=== PATIENT | female | born 1965 | race Two or more races ===

== ENCOUNTER 2024-04-27 13:00 | Outpatient (AMB) | payer MEDICAID, SELFPAY ==
[2024-04-27 13:11] VITALS: BP 127/78; PULSE 86; RESP 18; TEMP 36.7; O2SAT 97; BMI 43.0
--- NOTE | 2024-04-27 13:11 | PD.ORTHCLVIS ---
Vital signs 04/27/24 13:11 Height 1.65 m Height Method Stated Weight 117.14 kg Weight Measurement Method Standing Scale BMI 43.0 BP 127/78 Blood Pressure Source Automatic Cuff Blood Pressure Location Right Upper Arm Position Sitting Respiration 18 Pulse 86 Pulse Source Monitor Temp 98.0 F Temp Source Temporal Artery Scan Pulse Oximetry (%) 97 Oxygen Delivery Method Room Air Med/Allergies Allergies & Medications Allergies No Known Allergies Allergy (Verified 04/27/24 13:12) Subjective Visit Visit for: follow up visit and knee (RIGHT) Immunization / Flu Flu Vaccine in the Last 12 Months: No Flu Vaccine Exclusion Criteria: Refused by Patient History of Present Illness Chief complaint: F/U REQ RIGHT KNEE INJECTION Date of 1st surgery (if applicable): 5 YEARS AGO Chela is a pleasant 58-year-old female presents today for evaluation of her right knee. She has had cortisone injections every 3 months. They are no longer working. She reports that she is in a lot of pain. She had knee arthroscopy 4 years ago and she reports that this has not helped tremendously. 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 Exam Exam Patient is in no acute distress and is cooperative with the examination today. Breathing is nonlabored. Patient has a normal mood and affect. Bilateral extremities were evaluated and demonstrates sensation intact to light touch. Palpable pedal pulses are present. No significant edema is present. Bilateral hips were examined. The patient has no pain with log roll of the hips. Internal rotation to 30 degrees and external rotation to 30 degrees is painless. Negative FADIR. Left knee was examined today. The left knee is in reasonable alignment. Range of motion from 0-120 degrees. Knee is stable to varus and valgus as well as AP translation with <5mm. Patient has a negative McMurrays. There is no pain with patellofemoral compression and no crepitus noted. The knee is nontender to palpation. The right knee was also examined. The right knee is in [varus] alignment. Range of motion from [0-115] degrees. Knee is stable to varus and valgus as well as AP translation with <5mm. Patient has a [negative] McMurrays. There is [no] pain with patellofemoral compression and [no] crepitus noted. The knee is [tender] to palpation [medially]. xrays demonstrate severe right knee osteoarthritis and joint space narrowing Assessment and Plan Problem List (1) Arthritis of knee, right: Status: Acute Plan: Patient is a 58-year-old female with right knee osteoarthritis of likely significant severity. She is morbidly obese currently. We recommend weight loss. She is failed conservative treatment. I would like to see her weightbearing x-rays. We can discuss different surgical treatment but I would likely recommend weight loss at this time and possibly a cortisone injection. She will need authorization for injection at the next visit X-rays demonstrate significant right knee osteoarthritis. We discussed weight loss. Her goal weight is 240 pounds. Recommend knee cortisone injection as patient would like to proceed with conservative treatment at this time. The risks and benefits of the procedure were reviewed with the patient and patient gave verbal consent to continue with the procedure. Procedure: performed by Dr. Dominguez Using sterile technique the Right knee was thoroughly prepped with alcohol, and approximately 1 cc of Kenalog 40 mg/mL and 4 cc of 1% lidocaine was injected without resistance into the medial tibial femoral joint space. The patient tolerated the procedure. Office Procedures GNS Level of Care Nursing/Assessment Patient Status: Established Patient Nursing Assessment/Reassesment: Medication Reconciliation, Update PMH in EMR and Vital Signs Coordination of Care: Complex Care and Chronic Disease 1-5, Education Complex Pt/Fam, Consent,records obtained, informed consent, 1 Ins Authorization, Results/Orders obtained and Staff clarify orders Established Patient Charge Established Patient Point Assignment: 110 Established Patient Point Charge: EP Level 3 (80-115) Surgical Proc/IM SQ injection Major Surgical Procedure: Yes (RIGHT KNEE INJECTION) Medication Given Medication Given Medication Given: Yes Documented Dose Given: 4 Route: Infiitration Medication Given Medication Given Medication Given: Yes Documented Dose Given: 1 Route: Infiitration Office Meds Xylocaine 10 mg/mL (1 %) injection solution Performing Provider: Gregory Dominguez MD Performing Location: [facility] Administered by: Gregory Dominguez MD on 04/27/24 13:19 Dose Route Admin Location Dispensed Lot Number Expiration Date [facility] Railway Signal Operator 20 mL Infiltration 20 mL [id number] 02/24/27 27104-613-82 [facility] triamcinolone acetonide 40 mg/mL suspension for injection Performing Provider: Gregory Dominguez MD Performing Location: [facility] Administered by: Gregory Dominguez MD on 04/27/24 13:19 Dose Route Admin Location Dispensed Lot Number Expiration Date [facility] Railway Signal Operator 40 mg Infiltration 1 mL [id number] 01/24/26 [address]-7 [employer] Past Medical History Past Medical History Have you ever been diagnosed with any of the following: Respiratory Problems Smoking: No Smoking Exposure: No
== END 2024-04-27 13:48 | disposition home or self-care (01) ==
LOC: HODSRG 13:00
PROVIDERS: Supervising Provider Orthopaedic Surgery Adult Reconstructive Orthopaedic Surgery; Visit Provider Orthopaedic Surgery Adult Reconstructive Orthopaedic Surgery
DX: M17.11 Unilateral primary osteoarthritis, right knee (principal); E66.01 Morbid (severe) obesity due to excess calories; Z68.41 Body mass index [BMI] 40.0-44.9, adult
CPT/HCPCS: 20610; 99213; J3301; J3490; G0463

== ENCOUNTER 2024-10-24 07:51 | Outpatient (AMB) | payer MEDICAID, SELFPAY ==
[2024-10-24 08:03] VITALS: BP 120/84; PULSE 70; RESP 18; TEMP 36.2; O2SAT 98; BMI 40.8
--- NOTE | 2024-10-24 08:03 | PD.ORTHCLVIS ---
Vital signs 10/24/24 08:03 Height 1.65 m Height Method Stated Weight 111.272 kg Weight Measurement Method Standing Scale BMI 40.8 BP 120/84 Blood Pressure Source Automatic Cuff Blood Pressure Location Left Upper Arm Position Sitting Respiration 18 Pulse 70 Pulse Source Monitor Temp 97.1 F Temp Source Temporal Artery Scan Pulse Oximetry (%) 98 Oxygen Delivery Method Room Air Med/Allergies Allergies & Medications Allergies No Known Allergies Allergy (Verified 10/24/24 08:05) Medication Reconciliation No Known Home Medications 10/24/24 [History Confirmed 10/24/24] Exam Exam Patient is in no acute distress and is cooperative with the examination today. Breathing is nonlabored. Patient has a normal mood and affect. Bilateral extremities were evaluated and demonstrates sensation intact to light touch. Palpable pedal pulses are present. No significant edema is present. Bilateral hips were examined. The patient has no pain with log roll of the hips. Internal rotation to 30 degrees and external rotation to 30 degrees is painless. Negative FADIR. Left knee was examined today. The left knee is in reasonable alignment. Range of motion from 0-120 degrees. Knee is stable to varus and valgus as well as AP translation with <5mm. Patient has a negative McMurrays. There is no pain with patellofemoral compression and no crepitus noted. The knee is nontender to palpation. The right knee was also examined. The right knee is in [varus] alignment. Range of motion from [0-115] degrees. Knee is stable to varus and valgus as well as AP translation with <5mm. Patient has a [negative] McMurrays. There is [no] pain with patellofemoral compression and [no] crepitus noted. The knee is [tender] to palpation [medially]. xrays demonstrate severe right knee osteoarthritis and joint space narrowing Assessment and Plan Problem List (1) Arthritis of knee, right: Status: Acute Plan: Patient is a 58-year-old female with right knee osteoarthritis of likely significant severity. She is morbidly obese currently. We recommend weight loss. She is failed conservative treatment. I would like to see her weightbearing x-rays. We can discuss different surgical treatment but I would likely recommend weight loss at this time and possibly a cortisone injection. She will need authorization for injection at the next visit X-rays demonstrate significant right knee osteoarthritis. We discussed weight loss. Her goal weight is 240 pounds. Recommend knee cortisone injection as patient would like to proceed with conservative treatment at this time. The risks and benefits of the procedure were reviewed with the patient and patient gave verbal consent to continue with the procedure. Procedure: performed by Dr. Dominguez Using sterile technique the Right knee was thoroughly prepped with alcohol, and approximately 1 cc of Kenalog 40 mg/mL and 4 cc of 1% lidocaine was injected without resistance into the medial tibial femoral joint space. The patient tolerated the procedure. Office Procedures GNS Level of Care Nursing/Assessment Patient Status: Established Patient Nursing Assessment/Reassesment: Medication Reconciliation, Update PMH in EMR and Vital Signs Coordination of Care: Complex Care and Chronic Disease 1-5, Education Complex Pt/Fam, Consent,records obtained, informed consent, Results/Orders obtained and Staff clarify orders Established Patient Charge Established Patient Point Assignment: 95 Established Patient Point Charge: EP Level 3 (80-115) Surgical Proc/IM SQ injection Major Surgical Procedure: Yes (RIGHT KNEE INJECTION) Medication Given Medication Given Medication Given: Yes Documented Dose Given: 4 Route: Infiitration Medication Given Medication Given Medication Given: Yes Documented Dose Given: 1 Route: Infiitration Office Meds Xylocaine 10 mg/mL (1 %) injection solution Performing Provider: Gregory Dominguez MD Performing Location: [facility] Administered by: Gregory Dominguez MD on 10/24/24 08:20 Dose Route Admin Location Dispensed Lot Number Expiration Date [facility] [employer] Equipment Operator 20 mL Infiltration 20 mL [id number] 12/26/27 67665-154-01 [facility] triamcinolone acetonide 40 mg/mL suspension for injection Performing Provider: Gregory Dominguez MD Performing Location: [facility] Administered by: Gregory Dominguez MD on 10/24/24 08:20 Dose Route Admin Location Dispensed Lot Number Expiration Date [facility] [employer] Equipment Operator 40 mg intra-articular KNEE 1 mL [id number] 04/26/26 7954-6030-05 [employer] [place] Intake Visit Data Collection New Patient or Established: Established Patient (seen at [facility] within 3 years) Reason for Visit:: FOLLOW UP RIGHT KNEE INJECTION Seen by Clinical Staff ONLY (RN/MA): No PCP or OBGYN visit in last 3 months: Yes Hx Now: No Do You Feel Safe at Home: Yes Authorities Contacted: N/A Questionairres Past Medical History Past Medical History Have you ever been diagnosed with any of the following: Respiratory Problems Smoking: Yes (STARTED ) Smoking Exposure: Yes Subjective Visit Visit for: follow up visit, knee and injections Immunization / Flu Flu Vaccine in the Last 12 Months: No Flu Vaccine Exclusion Criteria: Refused by Patient History of Present Illness Chief complaint: right knee pain Patient is a pleasant 59-year-old female with right knee pain. She has [id number] arthritis. She is lost 12 pounds since we last saw her. She would like a new injection today. Personal History Red flag PMH: smoker Pain Pain level (0-10): 8 Pain duration: ALL DAY Pain location: inside (medial) and anterior Pain quality: sharp, dull and aching Pain timing: night, increases with activity and stairs Associated signs & symptoms: weakness Ambulatory data Ambulatory device: none Treatments Number of previous injections: 2 Improvement with previous injections: Yes Improvement with PT: No Improvement with NSAIDS: no Review of Systems Review of Systems: All systems negative unless otherwise noted in HPI.
== END 2024-10-24 08:16 | disposition home or self-care (01) ==
LOC: HODSRG 07:51
PROVIDERS: Supervising Provider Orthopaedic Surgery Adult Reconstructive Orthopaedic Surgery; Visit Provider Orthopaedic Surgery Adult Reconstructive Orthopaedic Surgery
DX: M17.11 Unilateral primary osteoarthritis, right knee (principal); E66.01 Morbid (severe) obesity due to excess calories; Z68.41 Body mass index [BMI] 40.0-44.9, adult
CPT/HCPCS: 20610; 99213; J3301; J3490; G0463

== ENCOUNTER 2025-02-22 08:10 | Outpatient (AMB) | payer MEDICAID, SELFPAY ==
[2025-02-22 08:19] VITALS: BP 123/76; PULSE 62; RESP 19; TEMP 36.4; O2SAT 100; BMI 40.8
--- NOTE | 2025-02-22 08:19 | ORTHONT_ITS ---
Vital signs 02/22/25 08:19 Height 1.65 m Height Method Stated Weight 111.215 kg Weight Measurement Method Standing Scale BMI 40.8 BP 123/76 Blood Pressure Source Automatic Cuff Blood Pressure Location Left Upper Arm Position Sitting Respiration 19 Pulse 62 Pulse Source Monitor Temp 97.6 F Temp Source Temporal Artery Scan Pulse Oximetry (%) 100 Oxygen Delivery Method Room Air Med/Allergies Allergies & Medications Allergies No Known Allergies Allergy (Verified 02/22/25 08:20) Medication Reconciliation No Known Home Medications 10/24/24 [History Confirmed 02/22/25] Exam Exam Patient is in no acute distress and is cooperative with the examination today. Breathing is nonlabored. Patient has a normal mood and affect. Bilateral extremities were evaluated and demonstrates sensation intact to light touch. Palpable pedal pulses are present. No significant edema is present. Bilateral hips were examined. The patient has no pain with log roll of the hips. Internal rotation to 30 degrees and external rotation to 30 degrees is painless. Negative FADIR. Left knee was examined today. The left knee is in reasonable alignment. Range of motion from 0-120 degrees. Knee is stable to varus and valgus as well as AP translation with <5mm. Patient has a negative McMurrays. There is no pain with patellofemoral compression and no crepitus noted. The knee is nontender to palpation. The right knee was also examined. The right knee is in [varus] alignment. Range of motion from [0-115] degrees. Knee is stable to varus and valgus as well as AP translation with <5mm. Patient has a [negative] McMurrays. There is [no] pain with patellofemoral compression and [no] crepitus noted. The knee is [tender] to palpation [medially]. xrays demonstrate severe right knee osteoarthritis and joint space narrowing Assessment and Plan Problem List (1) Arthritis of knee, right: Status: Acute Plan: Patient is a 58-year-old female with right knee osteoarthritis of likely signifi cant severity. She is morbidly obese currently. We recommend weight loss. She is failed conservative treatment. I would like to see her weightbearing x- rays. We can discuss different surgical treatment but I would likely recommend weight loss at this time and possibly a cortisone injection. She will need authorization for injection at the next visit X-rays demonstrate significant right knee osteoarthritis. We discussed weight loss. Her goal weight is 240 pounds. Recommend knee cortisone injection as patient would like to proceed with conservative treatment at this time. The risks and benefits of the procedure were reviewed with the patient and patient gave verbal consent to continue with the procedure. Procedure: performed by Dr. Dominguez Using sterile technique the Right knee was thoroughly prepped with alcohol, and approximately 1 cc of Depo-Medrol 80mg/mL and 4 cc of 0.2% ropivacaine was injected without resistance into the medial tibial femoral joint space. The patient tolerated the procedure. Office Procedures GNS Level of Care Nursing/Assessment Patient Status: Established Patient Nursing Assessment/Reassesment: Medication Reconciliation, Update PMH in EMR and Vital Signs Coordination of Care: Complex Care and Chronic Disease 1-5, Education Complex Pt/Fam, Consent,records obtained, informed consent, Results/Orders obtained and Staff clarify orders Established Patient Charge Established Patient Point Assignment: 95 Established Patient Point Charge: EP Level 3 (80-115) Surgical Proc/IM SQ injection Major Surgical Procedure: Yes (RIGHT KNEE INJECTION) Medication Given Medication Given Medication Given: Yes Documented Dose Given: 1 Route: Infiitration Medication Given Medication Given Medication Given: Yes Documented Dose Given: 4 Route: Infiitration Office Meds methylprednisolone acetate 80 mg/mL suspension for injection Performing Provider: Gregory Dominguez MD Performing Location: [facility] Administered by: Gregory Dominguez MD on 02/22/25 08:25 Dose Route Admin Location Dispensed Lot Number Expiration Date [facility] Infrastructure Director 80 mg intra-articular 1 mL [id number] 11/24/26 [address]-6 [facility] ropivacaine (PF) 2 mg/mL (0.2 %) injection solution Performing Provider: Gregory Dominguez MD Performing Location: [facility] Administered by: Gregory Dominguez MD on 02/22/25 08:25 Dose Route Admin Location Dispensed Lot Number Expiration Date [facility] Infrastructure Director 20 mL Infiltration 20 mL [id number] 07/27/27 40332-276-25 [facility] Intake Visit Data Collection New Patient or Established: Established Patient (seen at [facility] within 3 years) Reason for Visit:: 3MTH RIGHT KNEE INJECTION Seen by Clinical Staff ONLY (RN/MA): No PCP or OBGYN visit in last 3 months: Yes Hx Now: No Do You Feel Safe at Home: Yes Authorities Contacted: N/A Questionairres Past Medical History Past Medical History Have you ever been diagnosed with any of the following: Respiratory Problems Smoking: Yes (STARTED ) Smoking Exposure: Yes Subjective Visit Visit for: follow up visit, knee and injections Immunization / Flu Flu Vaccine in the Last 12 Months: No Flu Vaccine Exclusion Criteria: Refused by Patient History of Present Illness Chief complaint: right knee pain Patient is a pleasant 59-year-old female with right knee pain. She has [id number] arthritis. She is lost 12 pounds since we last saw her. She would like a new injection today. Personal History Red flag PMH: smoker Pain Pain level (0-10): 8 Pain duration: ALL DAY Pain location: inside (medial) and anterior Pain quality: sharp, dull and aching Pain timing: night, increases with activity and stairs Associated signs & symptoms: weakness Ambulatory data Ambulatory device: none Treatments Number of previous injections: 2 Improvement with previous injections: Yes Improvement with PT: No Improvement with NSAIDS: no Review of Systems Review of Systems: All systems negative unless otherwise noted in HPI.
== END 2025-02-22 08:24 | disposition home or self-care (01) ==
PROVIDERS: PCP Family Medicine; Referring Provider Family Medicine; Supervising Provider Orthopaedic Surgery Adult Reconstructive Orthopaedic Surgery; Visit Provider Orthopaedic Surgery Adult Reconstructive Orthopaedic Surgery
DX: M17.11 Unilateral primary osteoarthritis, right knee (principal); M25.561 Pain in right knee; E66.01 Morbid (severe) obesity due to excess calories; Z68.41 Body mass index [BMI] 40.0-44.9, adult
CPT/HCPCS: 20610; 99213; J1010; J2795; G0463

== ENCOUNTER 2025-06-14 13:21 | Outpatient (AMB) | payer MEDICAID, SELFPAY ==
[2025-06-14 13:54] VITALS: BP 127/78; PULSE 72; RESP 18; TEMP 36.4; O2SAT 98; BMI 41.1
--- NOTE | 2025-06-14 13:54 | ORTHONT_ITS ---
Vital signs 06/14/25 13:54 06/14/25 14:16 Height 1.65 m Height Method Stated Weight 111.782 kg Weight Measurement Method Standing Scale BMI 41.1 BP 127/78 127/78 Blood Pressure Source Automatic Cuff Blood Pressure Location Left Upper Arm Position Sitting Respiration 18 18 Pulse 72 72 Pulse Source Monitor Temp 97.6 F 97.6 F Temp Source Temporal Artery Scan Pulse Oximetry (%) 98 98 Oxygen Delivery Method Room Air Med/Allergies Allergies & Medications Allergies No Known Allergies Allergy (Verified 06/14/25 13:55) Medication Reconciliation No Known Home Medications 10/24/24 [History Confirmed 06/14/25] Assessment and Plan Problem List (1) Arthritis of knee, right: Status: Acute Office Procedures GNS Level of Care Nursing/Assessment Patient Status: Established Patient Nursing Assessment/Reassesment: Medication Reconciliation, Update PMH in EMR and Vital Signs Coordination of Care: Complex Care and Chronic Disease 1-5, Education Complex Pt/Fam, Consent,records obtained, informed consent, Results/Orders obtained and Staff clarify orders Established Patient Charge Established Patient Point Assignment: 95 Established Patient Point Charge: EP Level 3 (80-115) Surgical Proc/IM SQ injection Minor Surgical Procedure: Yes (KNEE INJECTION) Medication Given Medication Given Medication Given: Yes Documented Dose Given: 1 Route: Infiitration Medication Given Medication Given Medication Given: Yes Documented Dose Given: 4 Route: Infiitration Office Meds methylprednisolone acetate 80 mg/mL suspension for injection Performing Provider: Gregory Dominguez MD Performing Location: [facility] Administered by: Gregory Dominguez MD on 06/14/25 15:11 Dose Route Admin Location Dispensed Lot Number Expiration Date Pack age [facility] [employer] Machine Operator 80 mg intra-articular 1 mL [id number] 02/24/27 [address]-0 [id number] [employer] ropivacaine (PF) 2 mg/mL (0.2 %) injection solution Performing Provider: Gregory Dominguez MD Performing Location: [facility] Administered by: Gregory Dominguez MD on 06/14/25 15:11 Dose Route Admin Location Dispensed Lot Number Expiration Date Pack age [facility] W[employer] Machine Operator 20 mL Infiltration 20 mL [id number] 11/24/26 7862-1821-33 [id number] [id number] [facility] Intake Visit Data Collection New Patient or Established: Established Patient (seen at [facility] within 3 years) Reason for Visit:: 3MTH RIGHT KNEE INJECTION Seen by Clinical Staff ONLY (RN/MA): No PCP or OBGYN visit in last 3 months: Yes Hx Now: No Do You Feel Safe at Home: Yes Authorities Contacted: N/A Questionairres Past Medical History Past Medical History Have you ever been diagnosed with any of the following: Respiratory Problems Smoking: Yes (STARTED ) Smoking Exposure: Yes Subjective Visit Visit for: follow up visit, knee and injections Immunization / Flu Flu Vaccine in the Last 12 Months: No Flu Vaccine Exclusion Criteria: Refused by Patient History of Present Illness Chief complaint: right knee pain Personal History Red flag PMH: smoker Pain Pain level (0-10): 8 Pain duration: ALL DAY Pain location: inside (medial) and anterior Pain quality: sharp, dull and aching Pain timing: night, increases with activity and stairs Associated signs & symptoms: weakness Ambulatory data Ambulatory device: none Treatments Number of previous injections: 2 Improvement with previous injections: Yes Improvement with PT: No Improvement with NSAIDS: no Review of Systems Review of Systems: All systems negative unless otherwise noted in HPI.
--- NOTE | 2025-06-14 13:58 | PD.ORTHCLVIS ---
Vital signs 06/14/25 13:54 Height 1.65 m Height Method Stated Weight 111.782 kg Weight Measurement Method Standing Scale BMI 41.1 BP 127/78 Blood Pressure Source Automatic Cuff Blood Pressure Location Left Upper Arm Position Sitting Respiration 18 Pulse 72 Pulse Source Monitor Temp 97.6 F Temp Source Temporal Artery Scan Pulse Oximetry (%) 98 Oxygen Delivery Method Room Air Med/Allergies Allergies & Medications Allergies No Known Allergies Allergy (Verified 06/14/25 13:55) Medication Reconciliation No Known Home Medications 10/24/24 [History Confirmed 06/14/25] Exam Exam Patient is in no acute distress and is cooperative with the examination today. Breathing is nonlabored. Patient has a normal mood and affect. Bilateral extremities were evaluated and demonstrates sensation intact to light touch. Palpable pedal pulses are present. No significant edema is present. Bilateral hips were examined. The patient has no pain with log roll of the hips. Internal rotation to 30 degrees and external rotation to 30 degrees is painless. Negative FADIR. Left knee was examined today. The left knee is in reasonable alignment. Range of motion from 0-120 degrees. Knee is stable to varus and valgus as well as AP translation with <5mm. Patient has a negative McMurrays. There is no pain with patellofemoral compression and no crepitus noted. The knee is nontender to palpation. The right knee was also examined. The right knee is in [varus] alignment. Range of motion from [0-115] degrees. Knee is stable to varus and valgus as well as AP translation with <5mm. Patient has a [negative] McMurrays. There is [no] pain with patellofemoral compression and [no] crepitus noted. The knee is [tender] to palpation [medially]. xrays demonstrate severe right knee osteoarthritis and joint space narrowing Assessment and Plan Problem List (1) Arthritis of knee, right: Status: Acute Plan: Patient is a 58-year-old female with right knee osteoarthritis of likely significant severity. She is morbidly obese currently. We recommend weight loss. She is failed conservative treatment. I would like to see her weightbearing x-rays. We can discuss different surgical treatment but I would likely recommend weight loss at this time and possibly a cortisone injection. She will need authorization for injection at the next visit X-rays demonstrate significant right knee osteoarthritis. We discussed weight loss. Her goal weight is 240 pounds. Recommend knee cortisone injection as patient would like to proceed with conservative treatment at this time. The risks and benefits of the procedure were reviewed with the patient and patient gave verbal consent to continue with the procedure. Procedure: performed by Dr. Dominguez Using sterile technique the Right knee was thoroughly prepped with alcohol, and approximately 1 cc of Depo-Medrol 80mg/mL and 4 cc of 0.2% ropivacaine was injected without resistance into the medial tibial femoral joint space. The patient tolerated the procedure. Office Procedures GNS Level of Care Nursing/Assessment Patient Status: Established Patient Nursing Assessment/Reassesment: Medication Reconciliation, Update PMH in EMR and Vital Signs Coordination of Care: Complex Care and Chronic Disease 1-5, Education Complex Pt/Fam, Consent,records obtained, informed consent, Results/Orders obtained and Staff clarify orders Established Patient Charge Established Patient Point Assignment: 95 Established Patient Point Charge: EP Level 3 (80-115) Questionairres Past Medical History Past Medical History Have you ever been diagnosed with any of the following: Respiratory Problems Smoking: Yes (STARTED ) Smoking Exposure: Yes Subjective Visit Visit for: follow up visit, knee and injections Immunization / Flu Flu Vaccine in the Last 12 Months: No Flu Vaccine Exclusion Criteria: Refused by Patient History of Present Illness Chief complaint: right knee pain Patient is a pleasant 59-year-old female with right knee pain. She has [id number] arthritis. She has lost 12 pounds since we last saw her. She would like a new injection today. Personal History Red flag PMH: smoker Pain Pain level (0-10): 8 Pain duration: ALL DAY Pain location: inside (medial) and anterior Pain quality: sharp, dull and aching Pain timing: night, increases with activity and stairs Associated signs & symptoms: weakness Ambulatory data Ambulatory device: none Treatments Number of previous injections: 2 Improvement with previous injections: Yes Improvement with PT: No Improvement with NSAIDS: no Review of Systems Review of Systems: All systems negative unless otherwise noted in HPI.
[2025-06-14 14:16] VITALS: BP 127/78; PULSE 72; RESP 18; TEMP 36.4; O2SAT 98
== END 2025-06-14 14:17 | disposition home or self-care (01) ==
LOC: HODSRG 13:21
PROVIDERS: PCP Family Medicine; Referring Provider Family Medicine; Supervising Provider Orthopaedic Surgery Adult Reconstructive Orthopaedic Surgery; Visit Provider Orthopaedic Surgery Adult Reconstructive Orthopaedic Surgery
DX: M17.11 Unilateral primary osteoarthritis, right knee (principal); E66.01 Morbid (severe) obesity due to excess calories; Z68.41 Body mass index [BMI] 40.0-44.9, adult
CPT/HCPCS: 20610; 99213; J1010; J2795; G0463